=== PATIENT | female | born 1980 | race Caucasian/White ===

== ENCOUNTER → 2017-11-20 | Outpatient (CLI) | payer BC | LOC: STAR 09:22 | PROVIDERS: ATTEND Orthopaedic Surgery | DX: Z02.9 Encounter for administrative examinations, unspecified (principal) ==

== ENCOUNTER 2017-11-25 06:32 | Day surgery (SDC) | payer BC ==
[2017-11-20 10:00] VITALS: BP 160/118
[~2017-11-25] VITALS: Ht 172.7 cm; Wt 137.1 kg
[~2017-11-25 06:32] MED LIST: BUPIVACAINE/PF 0.5% ONE; CEFAZOLIN 1,000 MG ONE; FENTANYL PF 250 MCG/5ML ONE; MIDAZOLAM 1 MG/ML, 2ML ONE; PROPOFOL 10 MG/ML, 20ML ONE
[2017-11-25] MEDS ORDERED: LIDOCAINE 1%, 50ML ONE (06:38)
[2017-11-25] MEDS ORDERED: ROPIvacaine/PF 0.2%, 20 ML ONE (06:38)
[2017-11-25] MEDS ORDERED: EPINEPHRINE 1 MG/ML, 1ML ONE (06:38)
[2017-11-25] MEDS ORDERED: LACTATED RINGERS 1,000 ML IV SCH (06:55)
[2017-11-25] MEDS ORDERED: ROCURONIUM 10 MG/ML,10ML ONE (07:11)
[2017-11-25] MEDS ORDERED: CEFAZOLIN 1,000 MG ONE (07:11)
[2017-11-25] MEDS ORDERED: NEOSTIGMINE 1 MG/ML, 10ML ONE (07:11)
[2017-11-25] MEDS ORDERED: SUCCINYLCHOLINE 20 MG/ML, 10ML ONE (07:11)
[2017-11-25] MEDS ORDERED: GLYCOPYRROLATE 0.2MG/1ML, 5ML ONE (07:11)
[2017-11-25] MEDS ORDERED: DEXAMETHASONE 4 MG/ML, 1ML ONE (07:59)
[2017-11-25] MEDS ORDERED: ONDANSETRON 2MG/ML, 2ML ONE (07:59)
[2017-11-25] MEDS ORDERED: KETOROLAC 30 MG/1 ML ONE (07:59)
[2017-11-25] MEDS ORDERED: PROMETHAZINE 25 MG/ML, 1ML IV PRN (08:00)
[2017-11-25] MEDS ORDERED: hydrALAzine 20 MG/ML, 1ML IV PRN (08:00)
[2017-11-25] MEDS ORDERED: OXYcodone 5 MG/5 ML ORAL.SOL UDC PO PRN (08:00)
[2017-11-25] MEDS ORDERED: MEPERIDINE/PF 25MG/0.5ML IVPush PRN (08:00)
[2017-11-25] MEDS ORDERED: EPHEDRINE 50 MG/ML, 1ML IVPush PRN (08:00)
[2017-11-25] MEDS ORDERED: FENTANYL PF 100 MCG/2ML IV PRN (08:00)
[2017-11-25] MEDS ORDERED: HYDROmorphone 1 MG/ML, 1ML IV PRN (08:00)
[2017-11-25] MEDS ORDERED: ALBUTEROL SULFATE 2.5 MG/3 ML NPPB PRN (08:00)
[2017-11-25] MEDS ORDERED: ONDANSETRON 2MG/ML, 2ML IVPush PRN (08:00)
[2017-11-25] MEDS ORDERED: METOPROLOL 1 MG/ML, 5ML IV PRN (08:00)
[2017-11-25] MEDS ORDERED: ACETAMINOPHEN 325 MG TABLET PO PRN (08:00)
[2017-11-25] MEDS ORDERED: LABETALOL 5MG/ML, 20ML IV PRN (08:00)
[2017-11-25] MEDS ORDERED: ACETAMINOPHEN 650 MG/20.3 ML UDC ONE (08:24)
[2017-11-25] MEDS ORDERED: OXYcodone 5 MG/5 ML ORAL.SOL UDC ONE (08:24)
[2017-11-25] MEDS ORDERED: ACETAMINOPHEN 325 MG TABLET ONE (08:24)
== END 2017-11-25 10:05 ==
LOC: OUT 06:32
PROVIDERS: ATTEND Orthopaedic Surgery
DX: S83.281A Other tear of lateral meniscus, current injury, right knee, initial encounter (principal); S83.091A Other subluxation of right patella, initial encounter; M94.261 Chondromalacia, right knee; M65.861 Other synovitis and tenosynovitis, right lower leg; X58.XXXA Exposure to other specified factors, initial encounter; Y93.89 Activity, other specified; Y92.89 Other specified places as the place of occurrence of the external cause; Y99.8 Other external cause status
CPT/HCPCS: 29873; 29881; J0171; J0330; J0690; J1100; J1885; J2250; J2405; J2704; J2710; J2795; J3010; J3490; J7120